=== PATIENT | female | born 1935 | race Caucasian/White ===

== ENCOUNTER 2016-10-11 18:03 | Observation (INO) | payer MEDICARE, OTHER ==
[2016-10-11] MEDS ORDERED: NS 0.9% 1000 ML* 1,000 ML IV SCH (20:00)
--- NOTE | 2016-10-11 20:28 | RAD ---
Indication: Stroke. CT of the brain was performed without IV contrast. Ventricular structures are midline. No midline shift is noted. The extraction spaces are unremarkable. Periventricular lucency consistent with chronic ischemic White matter change is noted. Mastoid air cells and paranasal sinuses are unremarkable. IMPRESSION: Chronic ischemic White matter change with no intracranial mass or hemorrhage.
[2016-10-11 20:35] LABS: Hematocrit 42 % (35-47); Hemoglobin 13.8 g/dl (12.0-16.0); Mean Corpuscular HGB Conc 33 g/dl (31-36); Mean Corpuscular Hemoglobin 30 pg (27-31); Mean Corpuscular Volume 89 fL (80-97); Mean Platelet Volume 7 um3 (7.4-10.4); Red Blood Count 4.68 10^6/ul (4.0-5.4); Red Cell Distribution Width 13 % (10.5-15); White Blood Count 5.7 10^3/ul (3.5-10.8)
[2016-10-11 20:48] LABS: Calcium 9.5 mg/dL (8.6-10.3); EGFR African American 95.4 (>60); EGFR Non-African American 74.2 (>60); Potassium 3.9 mmol/L (3.5-5.0); Total Bilirubin 0.3 mg/dL (0.2-1.0)
[2016-10-11 21:02] LABS: Urine Bacteria 1+ (Absent); Urine Bilirubin Negative (Negative); Urine Glucose Negative (Negative); Urine Nitrite Negative (Negative)
--- NOTE | 2016-10-11 21:17 | ED ---
Gayla Su Rebecca, scribed for Saman Holden on 10/11/16 at 2000 . Neurological HPI - HPI Summary HPI Summary: Pt is an 81 y/o F who presents to ED s/p incident of diplopia and blurred vision. At approximately 0800 or 0900 this morning, while playing tennis, the pt began experiencing diplopia with blurred vision, reporting that she "could not tell if my opponent had one or two balls in their hand." Sx were intermittent throughout the episode which lasted about 1.5 hours in total. Sx aggravated by nothing, alleviated by spontaneous resolution. Pt is currently not experiencing any symptoms including weakness, numbness. Pt was referred to [facility] [place] [facility] by her PCP and kai [place] to r/o TIA. No diagnosed PMHx TIA though she reports an episode in early January of unsteady gait and visual changes. - History of Current Complaint Chief Complaint: EDEyeProblem Stated Complaint: DOUBLE VISION Time Seen by Provider: 10/11/16 19:34 Hx Obtained From: Patient Onset/Duration: Started hours ago - 0800/0900 this morning, Resolved Timing: Intermittent Episodes Lasting: - Intermittent during one episode that lasted 1.5 hours Current Severity: None Pain Intensity: 0 Pain Scale Used: 0-10 Numeric Character: Visual Changes - Diplopia and blurred vision BEEF BREAKER - resolved Aggravating: Nothing Alleviating: Spontanious Resolution Associated Signs and Symptoms: Positive: Visual Changes - diplopia and blurred vision - resolved. Negative: Weakness, Numbness - Allergy/Home Medications Allergies/Adverse Reactions: Allergies Allergy/AdvReac Type Severity Reaction Status Date / Time No Known Allergies Allergy Verified 04/19/15 14:04 Home Medications: Home Medications Aspirin [Aspirin 81 MG TAB] 81 mg PO DAILY 10/11/16 [History Confirmed 10/11/16] Calcium Carbonate CHEW TAB* [Tums*] 2 tab PO BEDTIME 10/11/16 [History Confirmed 10/11/16] Multiple Vitamins W/ Minerals [Multivitamin Adults] 1 tab PO DAILY 10/11/16 [ History Confirmed 10/11/16] PMH/Surg Hx/FS Hx/Imm Hx Endocrine/Hematology History: Reports: Hx Thyroid Disease - HYPOTHYROID Denies: Hx Diabetes Cardiovascular History: Reports: Hx Hypertension - HX. 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 Hx Chemotherapy: No Hx Radiation Therapy: No - Surgical History Surgery Procedure, Year, and Place: T & A -AGE 7; Lt ANKLE-1964; TUBAL LIGATION - 1966; VARICOSE VEIN-1976; GALLBLADDER - 1994; HYSTERECTOMY- 1980; CATARACT TONSILLECTOMY 1942 Infectious Disease History: No Infectious Disease History: Denies: Hx Hepatitis, Hx Human Immunodeficiency Virus (HIV), Traveled Outside the [place] in Last 30 Days - Family History Known Family History: Positive: None Negative: Unknown, Cardiac Disease, Hypertension, Diabetes, Renal Disease, Respiratory Disease, Seizure Disorder, Blood Disorder, Other - Social History Alcohol Use: Rare Substance Use Type: Reports: None Smoking Status (MU): Never Smoked Tobacco Review of Systems Positive: Blurred Vision - resolved, Diplopia - resolved Negative: Weakness, Numbness All Other Systems Reviewed And Are Negative: Yes Physical Exam - Summary Physical Exam Summary: Appearance: Well appearing, no pain distress Skin: warm, dry, reflects adequate perfusion Head/face: normal Eyes: EOMI, ALVARO ENT: normal Neck: supple, nontender Respiratory: CTA, breath sounds present Cardiovascular: RRR, pulses symmetrical Abdomen: nontender, soft Bowel: present Musculoskeletal: normal, strength/ROM intact Neuro: normal, sensory motor intact, A&Ox3 GCS: 15 NIH: 0 Triage Information Reviewed: Yes Vital Signs On Initial Exam: Initial Vitals Temp Pulse Resp BP Pulse Ox 97.1 F 75 18 184/83 100 10/11/16 18:16 10/11/16 18:16 10/11/16 18:16 10/11/16 18:16 10/11/16 18:16 Vital Signs Reviewed: Yes - Rodolfo Coma Scale Best Eye Response: 4 - Spontaneous Best Motor Response: 6 - Obeys Commands Best Verbal Response: 5 - Oriented Glascow Coma Scale Comments: 15 Diagnostics - Vital Signs Vital Signs Temp Pulse Resp BP Pulse Ox 10/11/16 19:51 98.1 F 70 16 189/94 99 10/11/16 18:16 97.1 F 75 18 184/83 100 - Laboratory Lab Results: Lab Results 10/11/16 10/11/16 10/11/16 Range/Units 20:24 20:24 20:24 WBC 5.7 (3.5-10.8) 10^3/ul RBC 4.68 (4.0-5.4) 10^6/ul Hgb 13.8 (12.0-16.0) g/dl Hct 42 (35-47) % MCV 89 (80-97) fL MCH 30 (27-31) pg MCHC 33 (31-36) g/dl RDW 13 (10.5-15) % Plt Count 257 (150-450) 10^3/ul MPV 7 L (7.4-10.4) um3 Neut % (Auto) 54.8 (38-83) % Lymph % (Auto) 26.9 (25-47) % Tate % (Auto) 14.4 H (1-9) % Eos % (Auto) 3.3 (0-6) % Baso % (Auto) 0.6 (0-2) % Absolute Neuts (auto) 3.1 (1.5-7.7) 10^3/ul Absolute Lymphs (auto) 1.5 (1.0-4.8) 10^3/ul Absolute Monos (auto) 0.8 (0-0.8) 10^3/ul Absolute Eos (auto) 0.2 (0-0.6) 10^3/ul Absolute Basos (auto) 0 (0-0.2) 10^3/ul Absolute Nucleated RBC 0 10^3/ul Nucleated RBC % 0 INR (Anticoag Therapy) 0.93 (0.89-1.11) APTT 34.2 (26.0-36.3) seconds Sodium 137 (133-145) mmol/L Potassium 3.9 (3.5-5.0) mmol/L Chloride 104 (101-111) mmol/L Carbon Dioxide 26 (22-32) mmol/L Anion Gap 7 (2-11) mmol/L BUN 18 (6-24) mg/dL Creatinine 0.75 (0.51-0.95) mg/dL Est GFR ( Amer) 95.4 (>60) Est GFR (Non-Af Amer) 74.2 (>60) BUN/Creatinine Ratio 24.0 H (8-20) Glucose 89 (70-100) mg/dL Calcium 9.5 (8.6-10.3) mg/dL Total Bilirubin 0.30 (0.2-1.0) mg/dL AST 27 (13-39) U/L ALT 18 (7-52) U/L Alkaline Phosphatase 52 (34-104) U/L Total Protein 7.0 (6.4-8.9) g/dL Albumin 4.0 (3.2-5.2) g/dL Globulin 3.0 (2-4) g/dL Albumin/Globulin Ratio 1.3 (1-3) Urine Color Urine Appearance Urine pH (5-9) Ur Specific Neligh (1.010-1.030) Urine Protein (Negative) Urine Ketones (Negative) Urine Blood (Negative) Urine Nitrate (Negative) Urine Bilirubin (Negative) Urine Urobilinogen (Negative) Ur Leukocyte Esterase (Negative) Urine WBC (Auto) (Absent) Urine RBC (Auto) (Absent) Ur Squamous Epith Cells (Absent) Urine Bacteria (Absent) Urine Glucose (Negative) 10/11/16 Range/Units 20:40 WBC (3.5-10.8) 10^3/ul RBC (4.0-5.4) 10^6/ul Hgb (12.0-16.0) g/dl Hct (35-47) % MCV (80-97) fL MCH (27-31) pg MCHC (31-36) g/dl RDW (10.5-15) % Plt Count (150-450) 10^3/ul MPV (7.4-10.4) um3 Neut % (Auto) (38-83) % Lymph % (Auto) (25-47) % Tate % (Auto) (1-9) % Eos % (Auto) (0-6) % Baso % (Auto) (0-2) % Absolute Neuts (auto) (1.5-7.7) 10^3/ul Absolute Lymphs (auto) (1.0-4.8) 10^3/ul Absolute Monos (auto) (0-0.8) 10^3/ul Absolute Eos (auto) (0-0.6) 10^3/ul Absolute Basos (auto) (0-0.2) 10^3/ul Absolute Nucleated RBC 10^3/ul Nucleated RBC % INR (Anticoag Therapy) (0.89-1.11) APTT (26.0-36.3) seconds Sodium (133-145) mmol/L Potassium (3.5-5.0) mmol/L Chloride (101-111) mmol/L Carbon Dioxide (22-32) mmol/L Anion Gap (2-11) mmol/L BUN (6-24) mg/dL Creatinine (0.51-0.95) mg/dL Est GFR ( Amer) (>60) Est GFR (Non-Af Amer) (>60) BUN/Creatinine Ratio (8-20) Glucose (70-100) mg/dL Calcium (8.6-10.3) mg/dL Total Bilirubin (0.2-1.0) mg/dL AST (13-39) U/L ALT (7-52) U/L Alkaline Phosphatase (34-104) U/L Total Protein (6.4-8.9) g/dL Albumin (3.2-5.2) g/dL Globulin (2-4) g/dL Albumin/Globulin Ratio (1-3) Urine Color Straw Urine Appearance Clear Urine pH 6.0 (5-9) Ur Specific Neligh 1.005 L (1.010-1.030) Urine Protein Negative (Negative) Urine Ketones Negative (Negative) Urine Blood 1+ H (Negative) Urine Nitrate Negative (Negative) Urine Bilirubin Negative (Negative) Urine Urobilinogen Negative (Negative) Ur Leukocyte Esterase Negative (Negative) Urine WBC (Auto) Trace(0-5/hpf) (Absent) Urine RBC (Auto) Trace(0-2/hpf) (Absent) Ur Squamous Epith Cells Present H (Absent) Urine Bacteria 1+ H (Absent) Urine Glucose Negative (Negative) Result Diagrams: 10/11/16 20:24 10/11/16 20:24 Lab Statement: Any lab studies that have been ordered have been reviewed, and results considered in the medical decision making process. - CT Brain CT CT Interpretation: No Acute Changes - Chronic ischemic White matter change with no intracranial mass or hemorrhage. ED physician reviewed the radiology report and agrees. CT Interpretation Completed By: Radiologist - EKG 2041 Cardiac Rate: NL - 74 bpm EKG Interpretation: LBBB EKG Comparison: No Significant Change - LBBB is found on an old EKG from 2007 Course/Dx - Course Assessment/Plan: Pt is an 81 y/o F who presents to ED s/p incident of diplopia and blurred vision. At approximately 0800 or 0900 this morning, while playing tennis, the pt began experiencing diplopia with blurred vision, reporting that she "could not tell if my opponent had one or two balls in their hand." Sx were intermittent throughout the episode which lasted about 1.5 hours in total. Sx aggravated by nothing, alleviated by spontaneous resolution. Pt is currently not experiencing any symptoms including weakness, numbness. Pt was referred to [facility] [place] ED by her PCP and kai [place] to r/o TIA. No diagnosed PMHx TIA though she reports an episode in early January of unsteady gait and visual changes. Brain CT reveals no acute findings. EKG is sinus rhythm with LBBB which is old. Discussed care of pt with Dr. Esparza who accepts pt for admission. Pt will be admitted with Dx of TIA. She understands and agrees. Elevated BP noted and advised to f/u with PCP. - Diagnoses Provider Diagnoses: TIA (transient ischemic attack) - Physician Notifications Discussed Care Of Patient With: Rafa Esparza Time Discussed With Above Provider: 20:43 Instructed by Provider To: Other - Accepts pt for admission. - Critical Care Time Critical Care Time: 30-74 min Discharge - Discharge Plan Condition: Stable Disposition: ADMITTED TO [facility] Referrals: Desire Cadena MD [Primary Care Provider] - The documentation as recorded by the Gayla nolasco Rebecca accurately reflects the service I personally performed and the decisions made by , Saman Holden.
[2016-10-11 21:54] LABS: HDL Cholesterol 66.7 mg/dL
[2016-10-11] MEDS ORDERED: Enoxaparin(*) 40 MG/0.4 ML SYR SUBCUT SCH (22:00)
[2016-10-11] MEDS ORDERED: Calcium Carbonate CHEW TAB* 500 MG (TUMS) PO SCH (22:00)
--- NOTE | 2016-10-11 22:15 | RAD ---
Indication: Transient ischemic attack. Image sequences: Sagittal and axial T1, axial T2, FLAIR, diffusion and susceptibility weighted images of the brain were obtained. Ventricular structures are midline. No midline shift is noted. Central and cortical atrophy is noted. There is no restriction of diffusion noted. There is no evidence of intracranial mass or hemorrhage. No other high or low density lesions are identified. There is periventricular signal abnormality on the FLAIR images consistent with chronic ischemic White matter change. Areas of signal abnormality is noted in the subcortical left frontal lobe and right parietal lobe. Mastoid air cells and paranasal sinuses are unremarkable. IMPRESSION: Chronic ischemic White matter change with no intracranial mass or hemorrhage. No restriction of diffusion.
--- NOTE | 2016-10-12 00:08 | HP ---
CC: Desire Cadena MD * ADMISSION HISTORY AND PHYSICAL: DATE OF ADMISSION: 10/11/16 PRIMARY CARE PHYSICIAN: Desire Cadena MD ATTENDING PHYSICIAN WHILE IN THE HOSPITAL: Rafa Esparza MD * (DICTATED BY KISHAN ORANTES) CHIEF COMPLAINT: The patient complaints of several hours of "one and a half vision" earlier today. HISTORY OF PRESENT ILLNESS: Ms. Guerra is an 81-year-old female with past medical history significant for hypothyroidism, remote history of provoked PE and BPPV who presents after being sent in from her plate put in worker and her PCP for a possible TIA due to an episode of 1.5 vision. The patient states she was playing tennis and suddenly she could not tell, she saw one and a half tennis balls whenever it was on the other side of the court and she said she felt a little "fuzzy" in her head. The patient states she then drove home and was having trouble determining whether traffic lights were due to persistent one and a half vision. The patient then went to her plate put in worker, who sent her to a PCP, both of whom believe she had a transient ischemic attack. The patient denies nausea or vomiting, chest pain, shortness of breath or dizziness. The patient states she had a similar episode in January when she woke up and was dizzy and looked at her clock and saw a red streak instead of the screen numbers, but this episode resolved before she reached the emergency department and she was sent home with a diagnosis of dehydration and had an outpatient carotid Doppler ultrasound which showed less than 50% blockage. The patient also had 2 episodes of vertigo, one of which resulted in a controlled fall in July and August of this year, at which time she was diagnosed with BPPV. The patient denies any other neurological symptoms with this episode including weakness, numbness or tingling, anomia, aphasia or ataxia. The patient denies any recent decrease in her fluid intake or food intake. The patient denies any recent increase in weight or increase in urination. The patient denies palpitations, and monitors her blood pressure daily and it is usually around 120/80. PAST MEDICAL HISTORY: Trimalleolar lower extremity fracture. PAST SURGICAL HISTORY: Cataract surgery, tonsillectomy, tubal ligation, hysterectomy, cholecystectomy and varicose vein stripping. MEDICATIONS: 1. Aspirin 81 mg p.o. daily. 2. Synthroid 125 mg p.o. daily. 3. Premarin vaginal cream. 4. Multivitamin. 5. Calcium carbonate 2 g p.o. daily. DRUG ALLERGIES: No known drug allergies. FAMILY HISTORY: The patient's father of lung cancer. The patient's mother of pulmonary embolism at the age of 66. The patient's brother of coronary artery disease at the age of 78. The patient's brother also had hypertension and hyperlipidemia. SOCIAL HISTORY: The patient denies ever smoking. The patient drinks alcohol rarely and has never done illicit drugs. The patient drinks 2 cups of coffee a day. 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 The patient is with a significant other and the patient has 4 kids, 3 of whom have survived. REVIEW OF SYSTEMS: The patient denies fevers, chills, constipation, diarrhea, cough, shortness of breath, abdominal pain, hematuria, dysuria, increase in urination, rash and muscle aches. PHYSICAL EXAMINATION GENERAL: The patient is an 81-year-old female who looks younger than stated age , who is sitting comfortably on the stretcher in the emergency department. VITAL SIGNS: Blood pressure 160/88, heart rate 73, temperature 98.1, respiratory rate 17, oxygen saturation 100% on room air. HEENT: Head normocephalic, nontraumatic. Sclerae anicteric. Pharynx nonerythematous. Mucosa moist. NECK: Supple. No lymphadenopathy. RESPIRATORY: Lungs clear to auscultation bilaterally. Good air exchange. HEART: Regular rate and rhythm. No clicks, murmurs gallops or rubs. ABDOMEN: Soft, nontender, nondistended. Bowel sounds present in all 4 quadrants. No hepatosplenomegaly. No abdominal bruits auscultated. EXTREMITIES: Radial pulses 2+, dorsalis pedis posterior tibial pulse 2+ bilaterally. Distal and proximal muscle strength 5/5 bilaterally. Sensation to light touch intact in both lower and upper extremities. [id number] test performed without difficulty. No pronator drift noted. NEUROLOGICAL: Cranial nerves II through XII intact. No diplopia with near or far vision. No nystagmus. Pupils equal, round, reactive to light. SKIN: Napoleon, warm and intact. LABORATORY FINDINGS/DIAGNOSTIC STUDIES: EKG shows normal sinus rhythm with a left bundle branch block, which the patient states is consistent with previous testing. The patient states she saw Dr. Claude Espinoza about 10 years ago and had a stress test which was normal. Brain CT shows chronic ischemic white matter changes and no intracranial mass or hemorrhage. White blood cell 5.7, hemoglobin 13.8, hematocrit 42. INR 0.93. Sodium 137, potassium 3.9, chloride 104, carbon dioxide 26, creatinine 0.75, BUN 18, glucose 89. Urine shows +1 blood and +1 bacteria. IMPRESSION: The patient is an 81-year-old female, past medical history significant for hypothyroid, pulmonary embolism and benign paroxysmal positional vertigo, who presents with a possible transient ischemic attack earlier today with no lingering deficits. 1. Transient ischemic attack. We will admit overnight for observation on telemetry. We will investigate possible risk factors for transient ischemic attack including lipid panel, hemoglobin A1c. Brain MRI ordered without contrast to assess for previous or current stroke. We will consider consulting Neurology in the morning. 2. Hypothyroidism. Continue Synthroid home dose. 3. DVT prophylaxis. The patient is at high risk due to history of pulmonary embolism, Lovenox 40 mg subcutaneous ordered q.24 hours. SCDs should be on while in bed. Ambulate ad renetta. 4. FEN. Normal unrestricted diet. 5. Code status. The patient is a full code. DISPOSITION: The patient is admitted OBV. TIME SPENT: Approximately 40 minutes was spent on this admission, 20 minutes of which was spent obtaining history and physical from the patient. This case was discussed with my attending, Dr. Rafa Esparza, and he is in agreement with this plan. [id number]/[facility] #: [id number] MEL
[2016-10-12] MEDS ORDERED: Levothyroxine TAB* 125 MCG TAB PO SCH (06:00)
[2016-10-12 07:58] VITALS: BP 139/78
[2016-10-12] MEDS ORDERED: Aspirin EC Low Dose* 81 MG TAB.EC PO SCH (09:00)
--- NOTE | 2016-10-12 17:39 | DS ---
CC: Dr. Cadena * DISCHARGE SUMMARY: DATE OF ADMISSION: 10/11/16 DATE OF DISCHARGE: 10/12/16 PRIMARY CARE PROVIDER: Dr. Cadena PRIMARY DIAGNOSIS: Diplopia. SECONDARY DIAGNOSES: Include: 1. Rule out transient ischemic attack. 2. Hypothyroidism. MEDICATIONS ON DISCHARGE: Unchanged since before admission include: 1. Multivitamin daily. 2. Calcium carbonate 2 tabs at bedtime. 3. Aspirin 81 mg daily. 4. Levothyroxine 125 mcg daily. 5. Premarin vaginal cream 1 application 3 times a week. PERTINENT LABORATORY DATA: HDL 66.7, LDL 110, cholesterol 195, triglycerides 92. Hemoglobin A1c 6.0. PERTINENT IMAGING STUDIES: Brain MRI, chronic ischemic white matter changes with no intracranial mass or hemorrhage, no restriction of diffusion. Telemetry monitoring, no events from the time of admission to discharge. HISTORY OF PRESENT ILLNESS AND HOSPITAL COURSE: This is a very active 81-year- old female with past medical history as outlined in history of present illness. On the day of admission, she was playing a game of tennis and noticed that she was seeing 1-1/2 tennis balls when they were far away from her on the ground on the opposite side of the court and when they were being held by her opponent. She was still able to play the game and was able to still strike the ball and return them. However, because of this visual symptoms, she decided to return home. While driving, she noticed that green lights also had an overlapping one and a half appearance, not fully two separate images although, overlapped as described as one and a half. She noted that while playing tennis and while driving home, no other object beside the tennis balls and the green light had this similar appearance. She proceeded to see Dr. Blue, her storage specialist secondary to these symptoms, which had resolved prior to presentation. Per report, her ophthalmologic exam was completely normal. She was referred to see her PCP, who then referred her to the emergency room. She was admitted overnight, had a concern for TIA and discussion with the patient, these symptoms to me do not seem consistent with a TIA, only effecting the tennis ball and the green light, no other objects, pre-resolution normal MRI. She had carotids performed in January. It is unclear at this point, which caused these transient events, although I did not think that would be ischemic in nature. Of note, her hemoglobin A1c was in the prediabetic range. We did have a discussion about potential low-dose statin for elevated LDL in the setting of these symptoms and past episode in January as well as treatment of her hemoglobin A1c. The patient defers to discuss later with Dr. Cadena who she has a close relationship with. The patient and her significant other were counseled at length about returning to hospital should she have any recurrent symptomatology. Both acknowledged understanding. AT FOLLOWUP: 1. Reevaluate cholesterol panel as well as elevated hemoglobin A1c. Treatment plan in discussion with yourself and patient. 2. Urinalysis positive for squamous epithelial cells and bacteria. Please follow culture until final. 3. No other specific labs or vitals or any followup. Reasons to return to the hospital included, but not limited to recurrent or worsening symptoms, additionally aphasia, facial droop, numbness or weakness, changes in vision, headache, lightheadedness, loss of consciousness or near loss of consciousness. Discussed at length with the patient and she acknowledged understanding. TIME SPENT: Greater than 45 minutes were spent on discharge of the patient, greater than half was spent [id number] with the patient. [id number]/[facility] #: [id number] MEL
== END 2016-10-12 12:56 | disposition home or self-care (01) ==
LOC: ED 18:03 → MEDTELE 21:10
PROVIDERS: ADMIT Hospitalist; ATTEND Internal Medicine
DX: H53.2 Diplopia (principal); I67.82 Cerebral ischemia; E03.9 Hypothyroidism, unspecified; H53.8 Other visual disturbances; I44.7 Left bundle-branch block, unspecified; R73.03 Prediabetes
CPT/HCPCS: 36415; 70450; 70551; 80053; 80061; 81003; 81015; 83036; 85025; 85610; 85730; 87086; 93005; 99283; A9270-GY; G0378; J1650

== ENCOUNTER 2017-08-18 16:55 | Emergency (ER) | payer MEDICARE, OTHER ==
[2017-08-18] MEDS ORDERED: NS 0.9% 1000 ML* 1,000 ML IV ONE (18:11)
[2017-08-18] MEDS ORDERED: Meclizine TAB* 12.5 MG PO ONE (18:11)
[2017-08-18 18:44] LABS: ABS Basophils 0 10^3/ul (0-0.2); ABS Eosinophils 0.2 10^3/ul (0-0.6); ABS Lymphocytes 1.5 10^3/ul (1.0-4.8); ABS Monocytes 0.7 10^3/ul (0-0.8); ABS Nucleated RBC 0 10^3/ul; Eosinophil % 3.9 % (0-6); Hematocrit 42 % (35-47); Hemoglobin 14.2 g/dl (12.0-16.0); Lymphocyte % 26.7 % (25-47); Mean Corpuscular HGB Conc 34 g/dl (31-36); Mean Corpuscular Hemoglobin 30 pg (27-31); Mean Corpuscular Volume 90 fL (80-97); Mean Platelet Volume 6.9 um3 (7.4-10.4); Nucleated Red Blood Cells % 0; Platelet Count 254 10^3/ul (150-450); Red Blood Count 4.71 10^6/ul (4.00-5.40); Red Cell Distribution Width 13 % (10.5-15); White Blood Count 5.5 10^3/ul (3.5-10.8)
[2017-08-18 18:50] LABS: Urine Appearance Clear; Urine Blood 1+ (Negative); Urine Color Colorless; Urine Ketones Negative (Negative); Urine Protein Negative (Negative); Urine Specific Gravity 1.002 (1.010-1.030); Urine Urobilinogen Negative (Negative)
[2017-08-18 18:56] LABS: INR 0.95 (0.77-1.02)
[2017-08-18 19:06] LABS: EGFR Non-African American 81.5 (>60)
--- NOTE | 2017-08-18 19:34 | RAD ---
INDICATION: Dizziness COMPARISON: Most recent comparison CT of the brain is dated October 11, 2016 TECHNIQUE: Contiguous axial sections of the brain were obtained from the skull base to the vertex without contrast. FINDINGS: Unless otherwise specified comparisons below reference the eighth 2816 CT of the brain. The ventricles, cisterns and sulci exhibit mild involutional changes similar to the prior CT of the brain.. There is mild periventricular and subcortical white matter hypoattenuation most consistent with chronic microvascular disease. The lerner-white matter differentiation is adequately maintained and there is no sulcal effacement. No significant focal abnormality or mass effect is present. There is no evidence for intracranial hemorrhage. No significant focal osseous abnormality is present. 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 The visualized portion of the paranasal sinuses appear clear. The mastoid air cells are well aerated bilaterally. IMPRESSION: No CT evidence of acute intracranial abnormality.
[2017-08-18 19:58] VITALS: BP 180/90
--- NOTE | 2017-08-18 20:43 | ED ---
Gloria uS Edward, scribed for Agustín Liu MD on 08/18/17 at 1807 . Dizziness - HPI Summary HPI Summary: 82 y/o female presents to the ED c/o dizziness starting at 05:00 this morning while making a bathroom trip. Pt felt uncomfortable driving today. Difficulty walking due to dizziness. Dizziness aggravated by lying on her right side and turning her head. Once before years ago the pt had a similar episode. Denies HEATH. Pt is otherwise asymptomatic. Pt has had increasingly difficulty balancing for the past several years. - History Of Current Complaint Chief Complaint: EDDizziness Stated Complaint: DIZZINESS Time Seen by Provider: 08/18/17 18:00 Hx Obtained From: Patient Timing: Constant Character: Dizzy Aggravating Factor(s): Position Change - R side more, Change In Head Position Associated Signs And Symptoms: Positive: Other: - Negative: HEATH - Allergies/Home Medications Allergies/Adverse Reactions: Allergies Allergy/AdvReac Type Severity Reaction Status Date / Time No Known Allergies Allergy Verified 04/19/15 14:04 Home Medications: Home Medications Aspirin EC TAB* [Ecotrin EC Low Dose 81 MG*] 81 mg PO DAILY 08/18/17 [History Confirmed 08/18/17] Calcium Carbonate CHEW TAB* [Tums*] 1,000 mg PO BEDTIME 08/18/17 [History Confirmed 08/18/17] Conjugated Estrogens VAG CM* [Premarin VAG CREAM*] 1 applic VAGINAL .THREE TIMES A WEEK 08/18/17 [History Confirmed 08/18/17] Levothyroxine TAB* [Synthroid TAB*] 112 mcg PO DAILY 08/18/17 [History Confirmed 08/18/17] Multivitamins/Minerals TAB* [Theragran/minerals TAB*] 1 tab PO DAILY 08/18/17 [ History Confirmed 08/18/17] PMH/Surg Hx/FS Hx/Imm Hx Previously Healthy: No Endocrine/Hematology History: Reports: Hx Thyroid Disease - hypothyroidism Denies: Hx Diabetes Cardiovascular History: Reports: Hx Hypertension - HX. 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 Hx Chemotherapy: No Hx Radiation Therapy: No - Surgical History Surgery Procedure, Year, and Place: T & A -AGE 7; Lt ANKLE-1964; TUBAL LIGATION - 1966; VARICOSE VEIN-1976; GALLBLADDER - 1994; HYSTERECTOMY- 1980; CATARACT TONSILLECTOMY 1942 Infectious Disease History: No Infectious Disease History: Denies: Hx Hepatitis, Hx Human Immunodeficiency Virus (HIV), Traveled Outside the [place] in Last 30 Days - Family History Known Family History: Negative: Unknown, Cardiac Disease, Hypertension, Diabetes, Renal Disease, Respiratory Disease, Seizure Disorder, Blood Disorder, Other - Social History Occupation: Retired Alcohol Use: Occasionally Hx Substance Use: No Substance Use Type: Reports: None Hx Tobacco Use: No Smoking Status (MU): Never Smoked Tobacco Review of Systems Constitutional: Negative Eyes: Negative ENT: Negative Cardiovascular: Negative Respiratory: Negative Gastrointestinal: Negative Genitourinary: Negative Musculoskeletal: Negative Skin: Negative Neurological: Other - Dizziness Psychological: Normal All Other Systems Reviewed And Are Negative: Yes Physical Exam Triage Information Reviewed: Yes Vital Signs On Initial Exam: Initial Vitals Temp Pulse Resp BP Pulse Ox 98.2 F 64 16 180/73 98 08/18/17 16:58 08/18/17 16:58 08/18/17 16:58 08/18/17 16:58 08/18/17 16:58 Vital Signs Reviewed: Yes Appearance: Positive: Well-Appearing, No Pain Distress Skin: Positive: Warm, Skin Color Reflects Adequate Perfusion, Dry Head/Face: Positive: Normal Head/Face Inspection Eyes: Positive: ALVARO, Other: - R beating nystagmus ENT: Positive: Normal ENT inspection Neck: Positive: Supple, Nontender Respiratory/Lung Sounds: Positive: Clear to Auscultation, Breath Sounds Present Cardiovascular: Positive: RRR Abdomen Description: Positive: Nontender, Soft Bowel Sounds: Positive: Present Musculoskeletal: Positive: Normal, Strength/ROM Intact Neurological: Positive: Sensory/Motor Intact, Alert, Oriented to Person Place, Time Psychiatric: Positive: Affect/Mood Appropriate Diagnostics - Vital Signs Vital Signs Temp Pulse Resp BP Pulse Ox 08/18/17 16:58 98.2 F 64 16 180/73 98 - Laboratory Lab Results: Lab Results 08/18/17 08/18/17 08/18/17 Range/Units 18:24 18:25 18:25 WBC (3.5-10.8) 10^3/ul RBC (4.00-5.40) 10^6/ul Hgb (12.0-16.0) g/dl Hct (35-47) % MCV (80-97) fL MCH (27-31) pg MCHC (31-36) g/dl RDW (10.5-15) % Plt Count (150-450) 10^3/ul MPV (7.4-10.4) um3 Neut % (Auto) (38-83) % Lymph % (Auto) (25-47) % [place] % (Auto) (0-7) % Eos % (Auto) (0-6) % Baso % (Auto) (0-2) % Absolute Neuts (auto) (1.5-7.7) 10^3/ul Absolute Lymphs (auto) (1.0-4.8) 10^3/ul Absolute Monos (auto) (0-0.8) 10^3/ul Absolute Eos (auto) (0-0.6) 10^3/ul Absolute Basos (auto) (0-0.2) 10^3/ul Absolute Nucleated RBC 10^3/ul Nucleated RBC % INR (Anticoag Therapy) 0.95 (0.77-1.02) APTT 37.0 H (26.0-36.3) seconds Sodium (135-145) mmol/L Potassium (3.5-5.0) mmol/L Chloride (101-111) mmol/L Carbon Dioxide (22-32) mmol/L Anion Gap (2-11) mmol/L BUN (6-24) mg/dL Creatinine (0.51-0.95) mg/dL Est GFR ( Amer) (>60) Est GFR (Non-Af Amer) (>60) BUN/Creatinine Ratio (8-20) Glucose (70-100) mg/dL Lactic Acid 1.0 (0.5-2.0) mmol/L Calcium (8.6-10.3) mg/dL Magnesium (1.9-2.7) mg/dL Total Bilirubin (0.2-1.0) mg/dL AST (13-39) U/L ALT (7-52) U/L Alkaline Phosphatase (34-104) U/L Troponin I (<0.04) ng/mL C-Reactive Protein (<8.01) mg/L B-Natriuretic Peptide 71 ( - 100) pg/mL Total Protein (6.4-8.9) g/dL Albumin (3.2-5.2) g/dL Globulin (2-4) g/dL Albumin/Globulin Ratio (1-3) Lipase (11.0-82.0) U/L TSH (0.34-5.60) mcIU/mL Urine Color Urine Appearance Urine pH (5-9) Ur Specific [place] (1.010-1.030) Urine Protein (Negative) Urine Ketones (Negative) Urine Blood (Negative) Urine Nitrate (Negative) Urine Bilirubin (Negative) Urine Urobilinogen (Negative) Ur Leukocyte Esterase (Negative) Urine WBC (Auto) (Absent) Urine RBC (Auto) (Absent) Urine Bacteria (Absent) Urine Glucose (Negative) 08/18/17 08/18/17 08/18/17 Range/Units 18:25 18:25 18:37 WBC 5.5 (3.5-10.8) 10^3/ul RBC 4.71 (4.00-5.40) 10^6/ul Hgb 14.2 (12.0-16.0) g/dl Hct 42 (35-47) % MCV 90 (80-97) fL MCH 30 (27-31) pg MCHC 34 (31-36) g/dl RDW 13 (10.5-15) % Plt Count 254 (150-450) 10^3/ul MPV 6.9 L (7.4-10.4) um3 Neut % (Auto) 55.3 (38-83) % Lymph % (Auto) 26.7 (25-47) % [place] % (Auto) 13.2 H (0-7) % Eos % (Auto) 3.9 (0-6) % Baso % (Auto) 0.9 (0-2) % Absolute Neuts (auto) 3.0 (1.5-7.7) 10^3/ul Absolute Lymphs (auto) 1.5 (1.0-4.8) 10^3/ul Absolute Monos (auto) 0.7 (0-0.8) 10^3/ul Absolute Eos (auto) 0.2 (0-0.6) 10^3/ul Absolute Basos (auto) 0 (0-0.2) 10^3/ul Absolute Nucleated RBC 0 10^3/ul Nucleated RBC % 0 INR (Anticoag Therapy) (0.77-1.02) APTT (26.0-36.3) seconds Sodium 136 (135-145) mmol/L Potassium 3.7 (3.5-5.0) mmol/L Chloride 103 (101-111) mmol/L Carbon Dioxide 25 (22-32) mmol/L Anion Gap 8 (2-11) mmol/L BUN 17 (6-24) mg/dL Creatinine 0.69 (0.51-0.95) mg/dL Est GFR ( Amer) 98.6 (>60) Est GFR (Non-Af Amer) 81.5 (>60) BUN/Creatinine Ratio 24.6 H (8-20) Glucose 101 H (70-100) mg/dL Lactic Acid (0.5-2.0) mmol/L Calcium 9.3 (8.6-10.3) mg/dL Magnesium 2.1 (1.9-2.7) mg/dL Total Bilirubin 0.40 (0.2-1.0) mg/dL AST 26 (13-39) U/L ALT 18 (7-52) U/L Alkaline Phosphatase 51 (34-104) U/L Troponin I 0.01 (<0.04) ng/mL C-Reactive Protein 1.49 (<8.01) mg/L B-Natriuretic Peptide ( - 100) pg/mL Total Protein 7.1 (6.4-8.9) g/dL Albumin 4.1 (3.2-5.2) g/dL Globulin 3.0 (2-4) g/dL Albumin/Globulin Ratio 1.4 (1-3) Lipase 26 (11.0-82.0) U/L TSH 3.47 (0.34-5.60) mcIU/mL Urine Color Colorless Urine Appearance Clear Urine pH 6.0 (5-9) Ur Specific [place] 1.002 L (1.010-1.030) Urine Protein Negative (Negative) Urine Ketones Negative (Negative) Urine Blood 1+ A (Negative) Urine Nitrate Negative (Negative) Urine Bilirubin Negative (Negative) Urine Urobilinogen Negative (Negative) Ur Leukocyte Esterase Negative (Negative) Urine WBC (Auto) Absent (Absent) Urine RBC (Auto) Trace(0-2/hpf) (Absent) Urine Bacteria 1+ A (Absent) Urine Glucose Negative (Negative) Result Diagrams: 08/18/17 18:25 08/18/17 18:25 Lab Statement: Any lab studies that have been ordered have been reviewed, and results considered in the medical decision making process. - CT BRAIN CT CT Interpretation: No Acute Changes - NO CT EVIDENCE OF ACUTE INTRACRANIAL ABNORMALITY CT Interpretation Completed By: Radiologist - Additional Comments Diagnostic Additional Comments: EKG - 18:30 - NSR 64 BPM. LBBB. No ectopy. Re-Evaluation - Re-Evaluation 1 Re-Evaluation Time: 19:42 Change: Improved Comment: Discuss test results, plan of care Dizzy Course/Dx - Course Course Of Treatment: DISCUSSED RESULTS WITH THE PATIENT. DIZZINESS IMPROVED IN ED AFTER MECLIZINE. NO FOCAL NEURO DEFICIT. F/U PMD; RETURN TO ED IF WORSE. - Diagnoses Provider Diagnoses: Vertigo, Dizziness Discharge - Sign-Out/Discharge Documenting (check all that apply): Discharge/Admit/Transfer - Discharge Plan Condition: Stable Disposition: HOME Prescriptions: Meclizine HCl [Motion Sickness Relief] 25 mg PO Q6H PRN #20 tablet PRN Reason: Dizziness Patient Education Materials: Vertigo (ED), Dizziness (ED) Referrals: Desire Cadena MD [Primary Care Provider] - Additional Instructions: FOLLOW UP WITH YOUR DOCTOR. RETURN TO THE EMERGENCY DEPARTMENT FOR ANY WORSENING OF YOUR CONDITION; WEAKNESS , NUMBNESS, VISION OR SPEECH CHANGES OR QUESTIONS OR CONCERNS. - Billing Disposition and Condition Condition: STABLE Disposition: Home The documentation as recorded by the Gloria nolasco Edward accurately reflects the service I personally performed and the decisions made by me, Agustín Liu MD.
== END 2017-08-18 19:57 | disposition home or self-care (01) ==
LOC: ED 16:55
DX: R42 Dizziness and giddiness (principal); I44.7 Left bundle-branch block, unspecified; E03.9 Hypothyroidism, unspecified
CPT/HCPCS: 36415; 70450; 80053; 81003; 81015; 83605; 83690; 83735; 83880; 84443; 84484; 85025; 85610; 85730; 86140; 87086; 93005; 96360; 99283; A9270-GY

== ENCOUNTER 2019-09-29 06:46 | Inpatient (IN) ==
[~2019-09-29 06:46] MED LIST: Buffered Lidocaine 1% SYRIN 1 ml INTRADERM ONE; Lactated Ringers 1000 ml BAG 1,000 ML IV SCH
[2019-09-29] MEDS ORDERED: ceFAZolin 2 GM PREMIX 2 GM/50 ML BAG ONE (07:09)
[2019-09-29] MEDS ORDERED: Buffered Lidocaine 1% SYRIN 1 ml INTRADERM ONE (07:09)
[2019-09-29] MEDS ORDERED: ROPIVACAINE 5 MG/ML 30 ML BTL (0.5%) ONE (07:32)
[2019-09-29] MEDS ORDERED: Midazolam 2 mg/2 ml VIAL 1 mg/ml 2 ml VIAL (2 mg) ONE (08:09)
[2019-09-29] MEDS ORDERED: Phenylephrine IV 10 MG/ML 1 ml VIAL ONE (08:11)
[2019-09-29] MEDS ORDERED: Lidocaine 2% PF 5 ML VIAL ONE (08:11)
[2019-09-29] MEDS ORDERED: Bupivacaine 0.5% SDV PF 30ML VIAL ONE (08:17)
[2019-09-29] MEDS ORDERED: oxyCODONE/Acetamin 5/325 mg TAB PO PRN (09:18)
[2019-09-29] MEDS ORDERED: Ondansetron 4 mg VIAL 2 MG/ML 2 ml VIAL IV PRN ×2 (09:18→11:41)
[2019-09-29] MEDS ORDERED: Naloxone 0.4 mg VIAL 0.4 mg/ml 1 ml VIAL IV PRN (09:18)
[2019-09-29] MEDS ORDERED: HYDROmorphone 1 MG/1 ML SYRINGE IV PRN (09:18)
[2019-09-29] MEDS ORDERED: fentaNYL 100 mcg/2 ml 50 MCG/ML VIAL IV PRN (09:18)
[2019-09-29] MEDS ORDERED: Dexamethasone IV 4 MG/ML VIAL 1 ml VIAL ONE (09:37)
[2019-09-29] MEDS ORDERED: Ondansetron 4 mg VIAL 2 MG/ML 2 ml VIAL ONE (09:37)
[2019-09-29] MEDS ORDERED: Acetaminophen IV 1 GM/100ML 100 ML ONE (09:55)
[2019-09-29] MEDS ORDERED: diPHENhydraMINE IV 50 MG/ML 1 ml VIAL (BENADRYL) IV PRN (11:41)
[2019-09-29] MEDS ORDERED: diPHENhydraMINE 25 mg TAB PO PRN (11:41)
[2019-09-29] MEDS ORDERED: Magnesium Hydroxide LIQ 30 ML UDC PO PRN (11:41)
[2019-09-29] MEDS ORDERED: Lactulose 30 ml UDC PO PRN (11:41)
[2019-09-29] MEDS ORDERED: Ondansetron ODT 4 mg TAB 4 MG TAB PO PRN (11:41)
[2019-09-29] MEDS ORDERED: oxyCODONE/Acetamin 5/325 mg TAB ONE (12:15)
[2019-09-29] MEDS: Lactated Ringers 1000 ml BAG 1,000 ML IV SCH ×2 (13:00→23:26)
[2019-09-29] MEDS ORDERED: hydrALAZINE 20 mg/ml 1 ML Vial IV IV SLOW PU PRN (14:14)
[2019-09-29] MEDS ORDERED: hydrALAZINE 20 mg/ml 1 ML Vial IV IV SLOW PU ONE (14:14)
[2019-09-29] MEDS: oxyCODONE/Acetamin 5/325 mg TAB PO PRN ×3 (14:45→23:25)
[2019-09-29] MEDS: ceFAZolin 1 GM ADVAN 1 GM in NS 0.9% 50 ML 50 ML IVPB SCH (17:33)
[2019-09-29] MEDS: Magnesium Hydroxide LIQ 30 ML UDC PO SCH (20:39)
[2019-09-29] MEDS: Triamcinolone 0.025% OINT 15 GM TUBE TOPICAL SCH (20:40)
[2019-09-30] MEDS: ceFAZolin 1 GM ADVAN 1 GM in NS 0.9% 50 ML 50 ML IVPB SCH ×2 (01:22→08:47)
[2019-09-30] MEDS: oxyCODONE/Acetamin 5/325 mg TAB PO PRN ×3 (04:10→12:44)
[2019-09-30 07:11] LABS: Hematocrit 29 % (35-47); Hemoglobin 10.2 g/dL (12.0-16.0); Mean Platelet Volume 7.3 fL (7.4-10.4); Platelet Count 186 10^3/uL (150-450)
[2019-09-30 07:29] LABS: BUN/Creatinine Ratio 28.8 (8-20); Calcium 8.2 mg/dL (8.6-10.3); EGFR African American 135.9 (>60); EGFR Non-African American 112.3 (>60); Potassium 4.1 mmol/L (3.5-5.0)
[2019-09-30] MEDS: Triamcinolone 0.025% OINT 15 GM TUBE TOPICAL SCH (08:40)
[2019-09-30] MEDS: Magnesium Hydroxide LIQ 30 ML UDC PO SCH (08:46)
[2019-09-30] MEDS ORDERED: Multivitamins/Minerals TAB PO SCH (09:00)
[2019-09-30] MEDS ORDERED: Vitamin THERAPEUTIC TAB PO SCH (09:00)
[2019-09-30 11:28] VITALS: BP 124/50
[2019-10-01] MEDS ORDERED: Conjugated Estrogens VAG CM 42.5 gm TUBE VAGINAL SCH (09:00)
== END 2019-09-30 11:20 | disposition home or self-care (01) | DRG 470 ==
LOC: AA 06:46 → SSU 12:44
PROVIDERS: ADMIT Orthopaedic Surgery Adult Reconstructive Orthopaedic Surgery; ATTEND Orthopaedic Surgery Adult Reconstructive Orthopaedic Surgery

== ENCOUNTER 2020-11-11 10:49 | Observation (INO) ==
[~2020-11-11 10:49] MED LIST changes: +DiMENhydriNATE IV 50 mg/ml 1 ml VIAL IV PUSH ONE; +HYDROcodone/ACETAMIN 5/325 mg TAB PO PRN; +Metoclopramide 5 MG/ML VIAL (10 mg) IV PRN; +Naloxone 0.4 mg VIAL 0.4 mg/ml 1 ml VIAL IV PRN; +Ondansetron 4 mg VIAL 2 MG/ML 2 ml VIAL IV PRN; +fentaNYL 100 mcg/2 ml 50 MCG/ML VIAL IV PRN
[2020-11-11] MEDS ORDERED: Propofol 10 MG/ML 20 ML BTL ONE ×2 (11:12→14:49)
[2020-11-11] MEDS ORDERED: Ketamine HCL 50 mg/ml 10 ml VIAL (500 MG) ONE (11:12)
[2020-11-11] MEDS ORDERED: Lidocaine 2% PF 5 ML VIAL ONE (11:12)
[2020-11-11] MEDS ORDERED: DiMENhydriNATE IV 50 mg/ml 1 ml VIAL ONE (11:13)
[2020-11-11] MEDS ORDERED: ceFAZolin 2 GM in NS PREMIX 2 GM/100 ML BAG IVPB ONE (11:13)
[2020-11-11] MEDS ORDERED: HYDROcodone/ACETAMIN 5/325 mg TAB ONE ×2 (13:00→16:29)
[2020-11-11] MEDS ORDERED: fentaNYL 100 mcg/2 ml 50 MCG/ML VIAL ONE ×2 (13:00→15:33)
[2020-11-11] MEDS ORDERED: Bupivacaine 0.5% SDV PF 30ML VIAL ONE (13:01)
[2020-11-11] MEDS ORDERED: Ropivacaine 5 MG/ML 20 ML VIAL 0.5% (100 MG) ONE (13:37)
[2020-11-11] MEDS ORDERED: Ondansetron 4 mg VIAL 2 MG/ML 2 ml VIAL ONE (15:10)
[2020-11-11] MEDS ORDERED: Magnesium Hydroxide LIQ 30 ML UDC PO PRN (15:16)
[2020-11-11] MEDS ORDERED: Lactulose 30 ml UDC PO PRN (15:16)
[2020-11-11] MEDS ORDERED: Ondansetron ODT 4 mg TAB 4 MG TAB PO PRN (15:16)
[2020-11-11] MEDS ORDERED: diPHENhydraMINE IV 50 MG/ML 1 ml VIAL (BENADRYL) IV PRN (15:16)
[2020-11-11] MEDS ORDERED: Morphine 2 MG/ML SYRINGE IV PRN (15:16)
[2020-11-11] MEDS ORDERED: Ondansetron 4 mg VIAL 2 MG/ML 2 ml VIAL IV PRN (15:16)
[2020-11-11] MEDS ORDERED: diPHENhydraMINE 25 mg TAB PO PRN (15:16)
[2020-11-11] MEDS ORDERED: HYDROmorphone 1 MG/1 ML SYRINGE ONE (15:34)
[2020-11-11] MEDS ORDERED: Phenylephrine 40 mcg/mL 10mL (400mcg) SYRINGE ONE (15:43)
[2020-11-11] MEDS: Magnesium Hydroxide LIQ 30 ML UDC PO SCH (21:17)
[2020-11-11] MEDS: ceFAZolin 1 GM ADVAN 1 GM in NS 0.9% 50 ML 50 ML IVPB SCH (21:24)
[2020-11-11] MEDS: Lactated Ringers 1000 ml BAG 1,000 ML IV SCH (22:48)
[2020-11-12] MEDS: ceFAZolin 1 GM ADVAN 1 GM in NS 0.9% 50 ML 50 ML IVPB SCH ×2 (05:17→14:10)
[2020-11-12] MEDS: Lactated Ringers 1000 ml BAG 1,000 ML IV SCH (06:02)
[2020-11-12 06:15] LABS: Hematocrit 31 % (35-47); Hemoglobin 10.8 g/dL (12.0-16.0); Mean Platelet Volume 6.9 fL (7.4-10.4); Platelet Count 155 10^3/uL (150-450)
[2020-11-12 06:33] LABS: Calcium 8.1 mg/dL (8.6-10.3); EGFR African American 108.7 (>60); EGFR Non-African American 89.8 (>60)
[2020-11-12] MEDS: Magnesium Hydroxide LIQ 30 ML UDC PO SCH (08:49)
[2020-11-12] MEDS ORDERED: Vitamin THERAPEUTIC TAB PO SCH (09:00)
[2020-11-12 11:22] VITALS: BP 128/64
[2020-11-14] MEDS ORDERED: Conjugated Estrogens VAG CM 42.5 gm TUBE VAGINAL SCH (09:00)
== END 2020-11-12 16:36 | disposition home or self-care (01) ==
LOC: AA 10:49 → INTOOBSV 10:49 → SSU 17:28
PROVIDERS: ADMIT Orthopaedic Surgery Adult Reconstructive Orthopaedic Surgery; ATTEND Orthopaedic Surgery Adult Reconstructive Orthopaedic Surgery

== ENCOUNTER 2023-01-12 07:30 | Observation (INO) ==
[~2023-01-12 07:30] MED LIST changes: -DiMENhydriNATE IV 50 mg/ml 1 ml VIAL IV PUSH ONE; -HYDROcodone/ACETAMIN 5/325 mg TAB PO PRN; -Metoclopramide 5 MG/ML VIAL (10 mg) IV PRN; -Naloxone 0.4 mg VIAL 0.4 mg/ml 1 ml VIAL IV PRN; -Ondansetron 4 mg VIAL 2 MG/ML 2 ml VIAL IV PRN; -fentaNYL 100 mcg/2 ml 50 MCG/ML VIAL IV PRN
[2023-02-09] MEDS ORDERED: Naloxone 0.4 mg VIAL 0.4 mg/ml 1 ml VIAL IV PRN (10:58)
[2023-02-09] MEDS ORDERED: Ondansetron 4 mg VIAL 2 MG/ML 2 ml VIAL IV PRN (10:58)
[2023-02-09] MEDS ORDERED: fentaNYL 100 mcg/2 ml 50 MCG/ML VIAL IV PRN (10:58)
[2023-02-10] MEDS ORDERED: Buffered Lidocaine 1% SYRIN 1 ml INTRADERM ONE (06:00)
[2023-02-10] MEDS ORDERED: Lactated Ringers 1000 ml BAG 1,000 ML IV SCH (06:00)
[2023-02-10] MEDS ORDERED: Lidocaine 2% PF 5 ML VIAL ONE (09:42)
[2023-02-10] MEDS ORDERED: Propofol 10 MG/ML 20 ML BTL ONE (09:42)
[2023-02-10] MEDS ORDERED: Phenylephrine IV 10 MG/ML 1 ml VIAL ONE (09:43)
[2023-02-10] MEDS ORDERED: Rocuronium 50 mg VIAL 10 mg/ml 5 ml VIAL (50 mg) ONE ×3 (09:43→13:56)
[2023-02-10] MEDS ORDERED: fentaNYL 100 mcg/2 ml 50 MCG/ML VIAL ONE ×2 (09:43→15:38)
[2023-02-10] MEDS ORDERED: Midazolam 2 mg/2 ml VIAL 1 mg/ml 2 ml VIAL (2 mg) ONE ×2 (09:46→11:07)
[2023-02-10] MEDS ORDERED: Vancomycin 1,000 MG VIAL ONE (09:51)
[2023-02-10] MEDS ORDERED: ceFAZolin 2 GM in NS PREMIX 2 GM/100 ML BAG IVPB ONE (10:06)
[2023-02-10 10:28] LABS: Rapid COVID-19 Molecular Undetected (Undetected)
[2023-02-10] MEDS ORDERED: Dexamethasone IV 4 MG/ML VIAL 1 ml VIAL ONE (11:07)
[2023-02-10] MEDS ORDERED: Bupivacaine 0.5% SDV PF 30ML VIAL ONE (11:07)
[2023-02-10] MEDS ORDERED: Albumin Human 5% 12.5 GM/250 ML BTL IV ONE (12:00)
[2023-02-10] MEDS ORDERED: Ondansetron 4 mg VIAL 2 MG/ML 2 ml VIAL IV PRN (13:43)
[2023-02-10] MEDS ORDERED: Ondansetron ODT 4 mg TAB 4 MG TAB PO PRN (13:43)
[2023-02-10] MEDS ORDERED: Morphine 2 MG/ML SYRINGE IV PRN (13:43)
[2023-02-10] MEDS ORDERED: Magnesium Hydroxide LIQ 30 ML UDC PO PRN (13:43)
[2023-02-10] MEDS ORDERED: Lactulose 30 ml UDC PO PRN (13:43)
[2023-02-10] MEDS: Lactated Ringers 1000 ml BAG 1,000 ML IV SCH (18:18)
[2023-02-10] MEDS: ceFAZolin 1 GM ADVAN 1 GM in NS 0.9% 50 ML 50 ML IVPB SCH (20:12)
[2023-02-10] MEDS: Magnesium Hydroxide LIQ 30 ML UDC PO SCH (20:38)
[2023-02-11] MEDS ORDERED: Polyethylene Glycol 3350 17 GM PACKET PO PRN (00:01)
[2023-02-11] MEDS: Lactated Ringers 1000 ml BAG 1,000 ML IV SCH (04:13)
[2023-02-11] MEDS: ceFAZolin 1 GM ADVAN 1 GM in NS 0.9% 50 ML 50 ML IVPB SCH ×2 (04:13→12:04)
[2023-02-11 06:14] LABS: Platelet Count 204 10^3/uL (150-450)
[2023-02-11 06:24] LABS: Hematocrit 31.2 % (35-45); Hemoglobin 10.5 g/dL (11.5-14.3); Mean Platelet Volume 7.2 fL (7.5-11.2)
[2023-02-11 06:35] LABS: Calcium 8.2 mg/dL (8.6-10.3); Creatinine, Serum 0.75 mg/dL (0.51-0.95); Potassium 4.1 mmol/L (3.5-5.0)
[2023-02-11] MEDS ORDERED: Vitamin THERAPEUTIC TAB PO SCH (09:00)
[2023-02-11 10:27] VITALS: BP 100/55
[2023-02-11] MEDS: Magnesium Hydroxide LIQ 30 ML UDC PO SCH (12:03)
== END 2023-02-11 13:03 | disposition home or self-care (01) ==
LOC: AA 02-10 09:16 → INTOOBSV 02-10 09:16 → SSU 02-10 17:42
PROVIDERS: ADMIT Orthopaedic Surgery; ATTEND Orthopaedic Surgery

== ENCOUNTER 2024-01-20 10:42 | Observation (INO) ==
[2024-01-20 11:33] LABS: ABS Eosinophils 0.1 10^3/uL (0.0-0.5); ABS Lymphocytes 0.8 10^3/uL (1.0-4.8); ABS Monocytes 1.1 10^3/uL (0.0-0.9); ABS Neutrophils 6.6 10^3/uL (1.5-7.6); Eosinophil % 1.1 %; Hematocrit 38.4 % (35-45); Lymphocyte % 9.7 %; Mean Corpuscular Volume 88.4 fL (80-97); Mean Platelet Volume 6.7 fL (7.5-11.2); Platelet Count 245 10^3/uL (150-450); Red Blood Count 4.34 10^6/uL (3.63-4.92); Red Cell Distribution Width 13.8 % (12-17); White Blood Count 8.7 10^3/uL (3.8-11.8)
[2024-01-20 11:50] LABS: ALT 19 U/L (7-52); AST 28 U/L (13-39); Albumin/Globulin Ratio 1.7 (1-3); Alkaline Phosphatase 50 U/L (35-149); Anion Gap 9 mmol/L (2-16); Blood Urea Nitrogen 21 mg/dL (6-24); CO2 Carbon Dioxide 26 mmol/L (22-32); Calcium 9.5 mg/dL (8.6-10.3); Chloride 98 mmol/L (101-111); Cholesterol 136 mg/dL; Creatinine, Serum 0.75 mg/dL (0.51-0.95); Globulin 2.4 g/dL (2-4); Glucose 118 mg/dL (70-100); HDL Cholesterol 77.8 mg/dL; LDL Cholesterol 44 mg/dL; Potassium 4.1 mmol/L (3.5-5.0); Sodium 133 mmol/L (135-145); Total Bilirubin 0.6 mg/dL (0.2-1.0); Total Protein 6.4 g/dL (6.4-8.9); Triglycerides 73 mg/dL; eGFR CKD-EPI 76.5 (>60)
[2024-01-20 12:31] LABS: Direct Bilirubin 0.1 mg/dL (0.03-0.18); Indirect Bilirubin 0.5 mg/dL (0.3-1.0)
[2024-01-20 13:01] LABS: INR 1.21 (0.85-1.14)
[2024-01-20] MEDS ORDERED: Sulfur Hexaflouride MICROSPHR 25 MG VIAL IV PRN (15:43)
[2024-01-20] MEDS ORDERED: Metoprolol Tartrate 5 mg VIAL 5 ml VIAL (1 mg/ml) IV PRN (17:26)
[2024-01-20 18:11] LABS: C Reactive Protein < 1.00 mg/L (<8.01)
[2024-01-20] MEDS: Aspirin EC 325 mg TAB.EC PO ONE (18:14)
[2024-01-20] MEDS: Enoxaparin 60 MG/0.6 ML SYR SUBCUT SCH (23:38)
[2024-01-21] MEDS ORDERED: Aspirin EC 81 mg TAB.EC (enteric coated) PO SCH (09:00)
[2024-01-21 09:22] LABS: Urine Appearance Clear; Urine Bilirubin Negative (Negative); Urine Blood Trace (Negative); Urine Color Light-Yellow; Urine Glucose Negative (Negative); Urine Ketones 1+ (Negative); Urine Nitrite Negative (Negative); Urine Protein 1+ (>=30 mg/dL) (Negative); Urine Specific Gravity 1.037 (1.002-1.030); Urine Urobilinogen Negative (Negative)
[2024-01-21 09:24] LABS: Urine Bacteria Absent /HPF (Absent); Urine Red Blood Cell 2+(6-10/hpf) /HPF (0-Trace); Urine Squamous Epithelial Cell Present /HPF (Absent); Urine White Blood Cell Trace(0-5/hpf) /HPF (0-Trace)
[2024-01-21] MEDS: Aspirin EC 81 mg TAB.EC (enteric coated) PO SCH (12:50)
[2024-01-21] MEDS: Metoprolol Tartrate 5 mg VIAL 5 ml VIAL (1 mg/ml) IV PRN (23:00)
[2024-01-21] MEDS: Metoprolol Tartrate 5 mg VIAL 5 ml VIAL (1 mg/ml) IV ONE (23:32)
[2024-01-22 00:39] LABS: Calcium 9.3 mg/dL (8.6-10.3); Creatinine, Serum 0.75 mg/dL (0.51-0.95); Magnesium 1.8 mg/dL (1.9-2.7); Potassium 3.8 mmol/L (3.5-5.0); eGFR CKD-EPI 76.5 (>60)
[2024-01-22] MEDS: Metoprolol Tartrate 5 mg VIAL 5 ml VIAL (1 mg/ml) IV ONE (03:11)
[2024-01-22] MEDS: Magnesium Sulfate 2 gm BAG 2 GM/50 ML BAG IVPB ONE (04:28)
[2024-01-22] MEDS: Potassium Chlor 20 meq TAB.ER PO ONE (04:32)
[2024-01-22] MEDS: Potassium Chloride LIQUID 20 MEQ/15 ML LIQUID PO ONE (04:32)
[2024-01-23 06:44] LABS: Calcium 8.3 mg/dL (8.6-10.3); Creatinine, Serum 0.75 mg/dL (0.51-0.95); Magnesium 2.1 mg/dL (1.9-2.7); Potassium 4.2 mmol/L (3.5-5.0); eGFR CKD-EPI 76.5 (>60)
[2024-01-24 06:11] VITALS: BP 162/76
== END 2024-01-24 10:25 ==
LOC: ED 10:42 → EDHOLD 10:42 → SUATTDRO 16:20 → MEDTELE 19:59
PROVIDERS: ADMIT Internal Medicine; ATTEND Student in an Organized Health Care Education/Training Program

== ENCOUNTER 2024-02-22 04:09 | Inpatient (IN) ==
[2024-02-22 04:35] LABS: Hematocrit 34.3 % (35-45); Mean Corpuscular Hemoglobin 31.4 pg (27-33); Mean Corpuscular Hgb Conc 35.1 g/dL (31-36); Mean Corpuscular Volume 89.4 fL (80-97); Mean Platelet Volume 6.9 fL (7.5-11.2); Platelet Count 239 10^3/uL (150-450); Red Blood Count 3.83 10^6/uL (3.63-4.92); Red Cell Distribution Width 14.4 % (12-17); White Blood Count 9.2 10^3/uL (3.8-11.8)
[2024-02-22 04:46] LABS: INR 1.25 (0.85-1.14)
[2024-02-22 05:02] LABS: Albumin 4.3 g/dL (3.5-5.7); Calcium 9.2 mg/dL (8.6-10.3); Creatinine, Serum 0.62 mg/dL (0.51-0.95); Globulin 2.2 g/dL (2-4); Potassium 3.8 mmol/L (3.5-5.0); Total Bilirubin 0.5 mg/dL (0.2-1.0); Total Protein 6.5 g/dL (6.4-8.9); eGFR CKD-EPI 85.1 (>60)
[2024-02-22 05:44] LABS: ABS Eosinophils 0.1 10^3/uL (0.0-0.5); ABS Monocytes 1.6 10^3/uL (0.0-0.9); ABS Neutrophils 6.4 10^3/uL (1.5-7.6); Eosinophil % 0.7 %
[2024-02-22 06:01] LABS: High Sensitivity Troponin 1 Hr 22 pg/mL (<15)
[2024-02-22 08:02] LABS: High Sensitivity Troponin 3 Hr 23 pg/mL (<15)
[2024-02-22] MEDS ORDERED: Morphine 2 MG/ML SYRINGE ONE (08:10)
[2024-02-22] MEDS ORDERED: Ondansetron 4 mg VIAL 2 MG/ML 2 ml VIAL ONE (08:10)
[2024-02-22] MEDS: Ondansetron 4 mg VIAL 2 MG/ML 2 ml VIAL IV ONE (08:12)
[2024-02-22] MEDS: Iohexol 350 (CONTRAST) 500 ML MDV IV ONE (09:41)
[2024-02-22] MEDS: Lactated Ringers 1000 ml BAG IV.FLUID IV ONE (12:15)
[2024-02-22 13:10] LABS: Urine Appearance Clear; Urine Bilirubin Negative (Negative); Urine Blood Trace (Negative); Urine Color Light-Yellow; Urine Glucose Negative (Negative); Urine Ketones Negative (Negative); Urine Nitrite 2+ (Negative); Urine Protein Trace (Negative); Urine Specific Gravity 1.014 (1.002-1.030); Urine Urobilinogen Negative (Negative)
[2024-02-22 13:33] LABS: Urine Bacteria Absent /HPF (Absent); Urine Red Blood Cell 1+(3-5/hpf) /HPF (0-Trace); Urine White Blood Cell Trace(0-5/hpf) /HPF (0-Trace)
[2024-02-22 17:24] LABS: TSH Ultra Thyroid Stim Horm 0.57 mcIU/mL (0.34-5.60)
[2024-02-22] MEDS: cefTRIAXone 1 gm/50 mL D5W 1 GM/50 ML BAG IV SCH (17:38)
[2024-02-22 19:03] LABS: Magnesium 1.9 mg/dL (1.9-2.7)
[2024-02-23 06:21] LABS: ABS Eosinophils 0.1 10^3/uL (0.0-0.5); ABS Monocytes 1.2 10^3/uL (0.0-0.9); Eosinophil % 0.9 %; Hematocrit 34.6 % (35-45); Hemoglobin 11.7 g/dL (11.5-14.3); Lymphocyte % 15.5 %; Mean Corpuscular Hemoglobin 30.7 pg (27-33); Mean Corpuscular Hgb Conc 33.7 g/dL (31-36); Mean Corpuscular Volume 91.2 fL (80-97); Mean Platelet Volume 7.4 fL (7.5-11.2); Nucleated Red Blood Cells % 0.1 %/100WBC (0.0-0.8); Platelet Count 225 10^3/uL (150-450); Red Cell Distribution Width 14.7 % (12-17); White Blood Count 6.2 10^3/uL (3.8-11.8)
[2024-02-23 07:04] LABS: Calcium 8.4 mg/dL (8.6-10.3); Creatinine, Serum 0.71 mg/dL (0.51-0.95); Potassium 3.9 mmol/L (3.5-5.0); eGFR CKD-EPI 81.2 (>60)
[2024-02-23] MEDS ORDERED: Sulfur Hexaflouride MICROSPHR 25 MG VIAL IV PRN (08:33)
[2024-02-23] MEDS: Lactated Ringers 1000 ml BAG 500 ML IV ONE ×2 (08:50→20:14)
[2024-02-23] MEDS: Metoprolol Tartrate 5 mg VIAL 5 ml VIAL (1 mg/ml) IV ONE ×2 (15:59→22:05)
[2024-02-23] MEDS: Metoprolol Tartrate 5 mg VIAL 5 ml VIAL (1 mg/ml) IV PRN (18:51)
[2024-02-23] MEDS: Calcium Carb (TUMS) 500 mg CHEW TAB PO PRN (19:00)
[2024-02-24 06:42] LABS: Creatinine, Serum 0.7 mg/dL (0.51-0.95); Magnesium 1.9 mg/dL (1.9-2.7); Potassium 3.8 mmol/L (3.5-5.0); eGFR CKD-EPI 82.6 (>60)
[2024-02-24] MEDS: Magnesium Sulf 4 GM/100 ML IV 4,000 MG/100 ML BAG IVPB ONE (10:13)
[2024-02-24] MEDS: Conjugated Estrogens VAG CM 42.5 gm TUBE VAGINAL SCH (10:14)
[2024-02-24] MEDS: Amiodarone 400 mg TAB PO SCH (11:51)
[2024-02-24] MEDS: Magnesium Sulfate 2 gm BAG 2 GM/50 ML BAG IVPB ONE (11:54)
[2024-02-25 06:37] LABS: Calcium 7.7 mg/dL (8.6-10.3); Creatinine, Serum 0.75 mg/dL (0.51-0.95); Magnesium 2.2 mg/dL (1.9-2.7); Potassium 3.9 mmol/L (3.5-5.0); eGFR CKD-EPI 76.1 (>60)
[2024-02-25] MEDS: Potassium Chlor 20 meq TAB.ER PO ONE (09:03)
[2024-02-26 05:55] LABS: ABS Eosinophils 0.3 10^3/uL (0.0-0.5); ABS Lymphocytes 1.1 10^3/uL (1.0-4.8); ABS Monocytes 0.8 10^3/uL (0.0-0.9); ABS Neutrophils 3.1 10^3/uL (1.5-7.6); Eosinophil % 4.9 %; Hemoglobin 11.3 g/dL (11.5-14.3); Lymphocyte % 21.1 %; Mean Corpuscular Hemoglobin 31.4 pg (27-33); Mean Corpuscular Hgb Conc 35.3 g/dL (31-36); Mean Corpuscular Volume 89.1 fL (80-97); Mean Platelet Volume 6.9 fL (7.5-11.2); Nucleated Red Blood Cells % 0.1 %/100WBC (0.0-0.8); Platelet Count 279 10^3/uL (150-450); Red Blood Count 3.59 10^6/uL (3.63-4.92); Red Cell Distribution Width 14.5 % (12-17); White Blood Count 5.3 10^3/uL (3.8-11.8)
[2024-02-26 06:12] LABS: Calcium 7.7 mg/dL (8.6-10.3); Creatinine, Serum 0.82 mg/dL (0.51-0.95); Magnesium 2.1 mg/dL (1.9-2.7); eGFR CKD-EPI 68.3 (>60)
[2024-02-27 06:12] LABS: ABS Basophils 0.1 10^3/uL (0.0-0.1); ABS Eosinophils 0.3 10^3/uL (0.0-0.5); ABS Lymphocytes 1.3 10^3/uL (1.0-4.8); ABS Monocytes 0.9 10^3/uL (0.0-0.9); ABS Neutrophils 3.9 10^3/uL (1.5-7.6); Eosinophil % 4.3 %; Hematocrit 34.9 % (35-45); Lymphocyte % 20.4 %; Mean Corpuscular Hemoglobin 30.6 pg (27-33); Mean Corpuscular Hgb Conc 34.4 g/dL (31-36); Mean Platelet Volume 6.7 fL (7.5-11.2); Platelet Count 331 10^3/uL (150-450); Red Blood Count 3.92 10^6/uL (3.63-4.92); Red Cell Distribution Width 14.6 % (12-17); White Blood Count 6.5 10^3/uL (3.8-11.8)
[2024-02-27 06:32] LABS: Calcium 7.9 mg/dL (8.6-10.3); Creatinine, Serum 0.71 mg/dL (0.51-0.95); eGFR CKD-EPI 81.2 (>60)
[2024-02-27] MEDS: Benzocaine/Menthol LOZ PO PRN (11:20)
[2024-02-27 14:01] VITALS: BP 157/80
== END 2024-02-27 17:00 | disposition home or self-care (01) | DRG 309 ==
LOC: EDBD → EDHOLD 04:09 → MERGE 04:09 → ED 04:09 → SUATTDRO 13:19 → MEDTELE 15:19
PROVIDERS: ADMIT Internal Medicine; ATTEND Student in an Organized Health Care Education/Training Program